=== PATIENT | female | born 1990 | race Caucasian/White ===

== ENCOUNTER 2017-03-23 00:02 | Emergency (ER) | payer OTHER, MEDICAID ==
[~2017-03-23 00:02] MED LIST: CIPRO 500MG TA500 MG PO; COLACE 100100 MG/CAP PO; IMPLANON68 MG ID; NO HOME MEDICATIONS
[2017-03-23] MEDS ORDERED: PRENA1 CHEW1 CT1 PO (00:15)
[2017-03-23] MEDS ORDERED: SERTRALINE HYDR50 MG PO (00:15)
[2017-03-23] MEDS ORDERED: METRONIDAZOLE500 M1 PO (01:51)
[2017-03-23 02:05] VITALS: BP 129/86
== END 2017-03-23 01:57 | disposition home or self-care (01) ==
LOC: ED 00:02
DX: N76.0 Acute vaginitis (principal); Z11.3 Encounter for screening for infections with a predominantly sexual mode of transmission; Z11.8 Encounter for screening for other infectious and parasitic diseases; Z33.1 Pregnant state, incidental
CPT/HCPCS: Q0111